=== PATIENT | female | born 1965 | race African-American/Black ===

== ENCOUNTER 2024-07-13 18:12 | Emergency (ER) | payer SELFPAY ==
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
--- NOTE | 2024-07-13 18:47 | PC.NURSE ---
181 arrived to room 14 with CPR in progress. 7.[address] per EMS with Bagging in progress. 18[address] by Dr. Gregory 1818 epi 1821 pulse check, no pulse CPR resumed 1821 bicarb 1822 epi 1825 no pulse, CPR resumed 1828 Pulse check, no pulse TOD [address] Gregory
--- NOTE | 2024-07-13 23:27 | PC.NURSE ---
[facility] reference tonyinez for notification [phone]
--- NOTE | 2024-07-14 14:45 | PC.NURSE ---
Health Policy Nurse called and have positive ID for this pt Vanessa Smith 63 Next [place] kin [place] [phone] [place] [id number]
== END 2024-07-13 18:35 | disposition expired ==
PROVIDERS: Emergency Provider Emergency Medicine
DX: S01.01XA Laceration without foreign body of scalp, initial encounter (principal); S81.811A Laceration without foreign body, right lower leg, initial encounter; S91.011A Laceration without foreign body, right ankle, initial encounter; I46.8 Cardiac arrest due to other underlying condition; V03.10XA Pedestrian on foot injured in collision with car, pick-up truck or van in traffic accident, initial encounter
CPT/HCPCS: 32551; 92950; 96374; 96375; 99285; J0171; L0140